=== PATIENT | male | born 1940 | race Caucasian/White ===

== ENCOUNTER → 2017-12-29 | Outpatient (CLI) | payer MEDICARE ==
--- NOTE | 2017-12-29 15:23 | Diagnostic Imaging Report ---
PROCEDURE: MRI lumbar spine. TECHNIQUE: Multiplanar, multisequence MRI of the lumbar spine was performed without contrast. INDICATION: Back and pelvic pain. There are no prior studies available for comparison. FINDINGS: There is a 2.0 x 3.2 cm mass involving the posterior half of the vertebral body of L4 on the right. This mass should be considered neoplastic until proven otherwise. The mass does compress the ventral aspect of the thecal sac at this level and there is moderate trefoil stenosis at the L3-L4 level. There is also narrowing of the neural foramen bilaterally. In addition, there is a similar-appearing mass involving much of the right sacrum and ilium. This mass is not visualized in its entirety. MRI of the pelvis is pending for further study. There does appear to be compression of the thecal sac and nerve roots at the L5-S1 level due to the mass. There is also narrowing of the neural foramen bilaterally at L5-S1. There is no evidence for involvement of the L4-L5 level by neoplasm, but there is trefoil stenosis at this level. There is also narrowing of the neural foramen bilaterally. The L1-L2 and L2-L3 levels are unremarkable for spinal stenosis or nerve root encroachment. There is no sign of a cord lesion. There is no acute bony abnormality identified either. There is no evidence for a paraspinal mass. IMPRESSION: 1. There is a large mass involving much of the right sacrum and ilium. There is also a much smaller mass involving the posterior half of the vertebral body of L4 on the right. These masses should be considered neoplastic until proven otherwise. This mass could be secondary to a large metastatic focus. A primary bone neoplasm or plasmacytoma should also be considered. MRI of the pelvis is pending for further study. 2. There is spinal stenosis at L3-L4, L4-L5, and L5-S1. There is also neuroforaminal narrowing at each of these levels. 3. The remainder of the lumbar spine is unremarkable for spinal stenosis or nerve root encroachment. 4. There is no sign of an acute bony abnormality or of a cord lesion. Dictated by: Dictated on workstation # [id number]
--- NOTE | 2017-12-29 15:30 | Diagnostic Imaging Report ---
PROCEDURE: MRI pelvis without contrast. TECHNIQUE: Multiplanar, multisequence MRI of the pelvis was performed without contrast. INDICATION: Hip pain. FINDINGS: As noted on the MRI lumbar spine exam performed in conjunction with this study, there is a large mass involving the right sacrum and much of the right ilium. The mass also is extended into the right acetabulum and to both pubic rami as well. The mass measures 5.2 x 7.2 x 19.5 cm in maximum transverse, AP, and longitudinal dimensions. This mass should be considered neoplastic until proven otherwise. There is no other evidence for a neoplastic process. The prostate gland has somewhat of a heterogeneous appearance but does not seem to be enlarged. The urinary bladder is grossly unremarkable. There is no solid pelvic mass or free fluid collection evident. There does appear to be a well-defined cyst in the subcutaneous fat of the left buttock near midline. This measures 3.1 x 4.9 cm. IMPRESSION: 1. There is a large mass involving the sacrum and right ilium and pubic rami on the right. This mass should be considered neoplastic until proven otherwise. Differential considerations would include metastatic disease, a primary bone neoplasm and plasmocytoma. I would recommend that CT of the chest, abdomen, and pelvis be performed to evaluate for possible primary neoplasm that could account for the mass involving the right pelvis and sacrum. The CT exam could also give a better perspective of possible site for a biopsy. 2. There is no acute bony abnormality noted. 3. These results were discussed with Dr. Dugan. Dictated by: Dictated on workstation # [id number]
== END ==
LOC: RAD 12:14
PROVIDERS: ATTEND Nurse Practitioner Family
DX: M89.9 Disorder of bone, unspecified (principal); M48.07 Spinal stenosis, lumbosacral region; M99.73 Connective tissue and disc stenosis of intervertebral foramina of lumbar region
CPT/HCPCS: 72148; 72195

== ENCOUNTER → 2017-12-30 | Outpatient (CLI) | payer MEDICARE ==
--- NOTE | 2017-12-30 09:41 | Diagnostic Imaging Report ---
PROCEDURE: CT chest, abdomen, and pelvis without contrast. TECHNIQUE: Multiple contiguous axial images were obtained through the chest, abdomen, and pelvis without the use of intravenous contrast. INDICATION: Abnormal MRI of lumbar spine and pelvis indicating bony lesions. CT CHEST: Noncontrasted axial CT images of the thorax are obtained. There is no evidence of pulmonary mass or focal infiltrate. Unenhanced images reveal atherosclerotic calcification and coronary arteries without evidence of pathologic adenopathy in the chest. There is extensive expansile lesion demonstrating primarily lytic appearance involving the right eighth rib with coarse internal calcifications. There is also focal lucency within the posterolateral aspect of T9 vertebral body toward the left which extends into the left pedicle. There is no significant pleural or pericardial fluid. IMPRESSION: Primarily lytic lesions involving the right eighth rib and T9 vertebra. While differential considerations for expansile lytic lesion include multiple myeloma or possible chondroid tumor, multiple osseous lesions in the patient of this age group are likely due to metastatic disease and clinical correlation is recommended. Biopsy of the right eighth rib could be performed for histologic analysis. There is no evidence of pulmonary metastatic disease or pathologic adenopathy. CT ABDOMEN AND PELVIS: Unenhanced images of the liver and spleen reveal no focal lesion. There is no evidence of pancreatic, gallbladder or adrenal gland lesion. Left kidney is also unremarkable in the unenhanced images. There is abnormal enlargement of the right kidney with a slightly hyperdense focus in the lateral aspect of the midportion of the right kidney measuring approximately 4.2 cm in diameter. In addition, there is hyperdensity extending into the right renal vein, which may represent bland or tumor thrombus. There is no free fluid in the abdomen or pelvis. Appendix has a normal appearance. There is no evidence of pathologically enlarged adenopathy. There are prominent lytic lesions involving L4 vertebral body as well as the sacrum and the adjacent right ilium with extension into the right ischium with apparent pathologic fracture at the level of the posterior column of the right acetabulum. There is a circumscribed, possible cystic nodule in the subcutaneous tissues of the medial inferior left buttock. IMPRESSION: Additional expansile lytic bone lesions are seen in the right hemipelvis with probable pathologic fracture of the right ischium likely representing metastatic disease. This may arise from primary right renal malignancy. Distention of the right renal vein would be compatible with tumor embolus. These findings are incompletely evaluated on the noncontrasted CT study although clinical correlation and possible biopsy would be of use for confirmation. Dictated by: Dictated on workstation # [id number]
== END ==
LOC: RAD 08:49
PROVIDERS: ATTEND Family Medicine
DX: R93.7 Abnormal findings on diagnostic imaging of other parts of musculoskeletal system (principal); M89.9 Disorder of bone, unspecified; W01.0XXA Fall on same level from slipping, tripping and stumbling without subsequent striking against object, initial encounter; K08.89 Other specified disorders of teeth and supporting structures; I70.90 Unspecified atherosclerosis
CPT/HCPCS: 71250; 74176

== ENCOUNTER 2018-01-06 07:03 | Day surgery (SDC) | payer MEDICARE ==
[2018-01-06] VITALS (15 sets, daily range): BP systolic 105–137; BP diastolic 52–76
[~2018-01-06] VITALS: Ht 177.8 cm; Wt 99.8 kg
[2018-01-06 07:48] LABS: MEAN PLATELET VOLUME 9.8 FL (7.4-10.4); RED BLOOD COUNT 4.5 10^6/uL (4.35-5.85); RED CELL DISTRIBUTION WIDTH 14.9 % (10.0-14.5); WHITE BLOOD COUNT 10.4 10^3/uL (4.3-11.0)
[2018-01-06 08:12] LABS: INR 1.1 (0.8-1.4); PROTHROMBIN TIME PATIENT 14.2 SEC (12.2-14.7)
[2018-01-06] MEDS ORDERED: LIDOCAINE 1% INJ 20 ML 20 ML VIAL INJ ONE (08:15)
[2018-01-06] MEDS ORDERED: NS IV 1000 ML 1,000 ML IV STA (08:17)
[2018-01-06] MEDS ORDERED: fentaNYL INJECTION 100 MCG/2 ML AMP IVP ONE (08:30)
[2018-01-06] MEDS ORDERED: MIDAZOLAM 2 MG/2 ML (VERSED) VIAL IVP ONE (08:30)
[2018-01-06] MEDS ORDERED: HYDROcodone/APAP 5 MG/325 MG (LORTAB) TAB PO PRN (09:45)
--- NOTE | 2018-01-06 12:14 | Diagnostic Imaging Report ---
Indication: Right rib expansile lytic lesion. Patient presents for CT-guided biopsy. After informed written consent was obtained from the patient, the patient was brought to the CT suite and placed on the table in the left side down decubitus position. Axial imaging through the chest was performed to evaluate appropriate entry site. The skin of the right posterior thorax was then prepped and draped in usual sterile fashion. Conscious sedation was utilized with radiology nursing and constant monitoring. Patient was administered a total of 0.5 mg of Versed and 25 mcg of fentanyl intravenously. Total procedure time was 24 minutes. A small amount of 1% lidocaine was utilized for local anesthesia. An 18-gauge coaxial Temno guide needle was advanced into the expansile mass involving the right eighth posterior lateral rib. Multiple core biopsies were obtained. The needle was then repositioned into a different portion of the expansile lesion and additional core biopsies were obtained. Needle was withdrawn, hemostasis was obtained using manual compression. The patient tolerated procedure well and left the department in stable condition. Impression: CT-guided core biopsy of the expansile mass involving the right eighth rib, utilizing conscious sedation. Pathology results are currently pending. Dictated by: Dictated on workstation # [id number]
--- NOTE | 2018-01-06 13:28 | Pre-Op Note & Conscious Sedat ---
Pre-Operative Progress Note H&P Reviewed The H&P was reviewed, patient examined and no changes noted. Date H&P Reviewed: Jan 06, 2018 Time H&P Reviewed: 08:00 Pre-Op Diagnosis: Right rib mass Conscious Sedation Pre-Proced Time 08:00 ASA Score 2 For ASA 3 and 4: Consider anesthesia and medical clearance. Also, for patients with a history of failed moderate sedation consider anesthesia. Airway Lungs Heart ASA score ASA 1: a normal healthy patient ASA 2: a patient with a mild systemic disease (mid diabetes, controlled hypertension, obesity ASA 3: a patient with a severe systemic disease that limits activity (angina , COPD, prior Myocardial infarction) ASA 4: a patient with an incapacitating disease that is a constant threat to life (CHF, renal failure) ASA 5: a moribund patient not expected to survive 24 hrs. (ruptured aneurysm) ASA 6: a declared brain patient whose organs are being harvested. For emergent operations, add the letter E after the classification Mallampati Classification Grade 1 Sedation Plan Analgesia, Amnesia, Plan communicated to team members, Discussed options with patient/fam, Discussed risks with patient/fam The patient is an appropriate candidate to undergo the planned procedure, sedation, and anesthesia. The patient immediately re-assessed prior to indication. MANNY AGUILA MD Jan 06, 2018 13:28
== END 2018-01-06 13:30 | disposition home or self-care (01) ==
LOC: SDC 07:03
PROVIDERS: ATTEND Family Medicine
DX: C79.51 Secondary malignant neoplasm of bone (principal); C64.9 Malignant neoplasm of unspecified kidney, except renal pelvis; I10 Essential (primary) hypertension; G89.3 Neoplasm related pain (acute) (chronic); S32.601D Unspecified fracture of right ischium, subsequent encounter for fracture with routine healing; Z79.899 Other long term (current) drug therapy
CPT/HCPCS: 36415; 77012; 85027; 85610; 85730; 88307; 88341; 88342; 99156; 99157

== ENCOUNTER 2018-02-15 14:04 | Outpatient (RCR) | payer MEDICARE ==
[2018-01-14 10:33] LABS: BASOPHILS % (AUTO) 0 % (0-10); EOSINOPHILS # (AUTO) 0.1 10^3/uL (0.0-0.3); EOSINOPHILS % (AUTO) 1 % (0-10); HEMATOCRIT 40 % (40-54); HEMOGLOBIN 13.2 G/DL (13.3-17.7); LYMPHOCYTES # (AUTO) 1.5 X 10^3 (1.0-4.0); LYMPHOCYTES % (AUTO) 19 % (12-44); MEAN CORPUSCULAR HEMOGLOBIN 28 PG (25-34); MEAN CORPUSCULAR HGB CONC 33 G/DL (32-36); MEAN CORPUSCULAR VOLUME 84 FL (80-99); MEAN PLATELET VOLUME 9.2 FL (7.4-10.4); MONOCYTES # (AUTO) 0.7 X 10^3 (0.0-1.0); MONOCYTES % (AUTO) 9 % (0-12); NEUTROPHILS # (AUTO) 5.8 X 10^3 (1.8-7.8); NEUTROPHILS % (AUTO) 71 % (42-75); PLATELET COUNT 312 10^3/uL (130-400); RED BLOOD COUNT 4.75 10^6/uL (4.35-5.85); RED CELL DISTRIBUTION WIDTH 14.4 % (10.0-14.5); WHITE BLOOD COUNT 8.1 10^3/uL (4.3-11.0)
[2018-01-14 10:53] LABS: ALANINE AMINOTRANSFERASE 24 U/L (0-55); ALBUMIN 4.6 GM/DL (3.2-4.5); ALKALINE PHOSPHATASE 157 U/L (40-136); BILIRUBIN,TOTAL 0.5 MG/DL (0.1-1.0); BUN/CREATININE RATIO 22; CALCIUM 11.1 MG/DL (8.5-10.1); CARBON DIOXIDE 23 MMOL/L (21-32); CHLORIDE 100 MMOL/L (98-107); GFR ESTIMATED > 60; GLUCOSE 117 MG/DL (70-105); POTASSIUM 4.1 MMOL/L (3.6-5.0); SODIUM 136 MMOL/L (135-145); TOTAL PROTEIN 8.8 GM/DL (6.4-8.2)
[~2018-02-15 14:04] MED LIST: morphine INJ 4 MG/ML 1 ML (CANCER CTR) ONE
[2018-02-15] MEDS ORDERED: morphine INJ 4 MG/ML 1 ML (CANCER CTR) IV PRN (16:00)
== END 2018-04-14 | disposition home or self-care (01) ==
LOC: ONC 14:04
PROVIDERS: ATTEND Internal Medicine Hematology & Oncology
DX: Z51.0 Encounter for antineoplastic radiation therapy (principal); C64.1 Malignant neoplasm of right kidney, except renal pelvis; C79.51 Secondary malignant neoplasm of bone; E83.52 Hypercalcemia; G89.3 Neoplasm related pain (acute) (chronic); E66.9 Obesity, unspecified; Z68.30 Body mass index [BMI] 30.0-30.9, adult; Z79.82 Long term (current) use of aspirin; Z79.891 Long term (current) use of opiate analgesic; Z79.899 Other long term (current) drug therapy
CPT/HCPCS: 36415; 77290; 77295; 77300; 77334; 77336; 77417; 77470; 80053; 83615; 85025; 96374; 96376; 99205; 99213

== ENCOUNTER 2018-10-11 09:18 | Outpatient (RCR) | payer MEDICARE ==
[2018-07-19 10:22] LABS: BASOPHILS % (AUTO) 0 % (0-10); EOSINOPHILS # (AUTO) 0.3 10^3/uL (0.0-0.3); EOSINOPHILS % (AUTO) 3 % (0-10); HEMATOCRIT 41 % (40-54); HEMOGLOBIN 12.8 G/DL (13.3-17.7); LYMPHOCYTES % (AUTO) 33 % (12-44); MEAN CORPUSCULAR HEMOGLOBIN 28 PG (25-34); MEAN CORPUSCULAR HGB CONC 31 G/DL (32-36); MEAN CORPUSCULAR VOLUME 88 FL (80-99); MEAN PLATELET VOLUME 9.4 FL (7.4-10.4); MONOCYTES # (AUTO) 0.8 X 10^3 (0.0-1.0); MONOCYTES % (AUTO) 8 % (0-12); NEUTROPHILS # (AUTO) 5.2 X 10^3 (1.8-7.8); NEUTROPHILS % (AUTO) 56 % (42-75); PLATELET COUNT 291 10^3/uL (130-400); RED CELL DISTRIBUTION WIDTH 21.3 % (10.0-14.5); WHITE BLOOD COUNT 9.3 10^3/uL (4.3-11.0)
[2018-07-19 10:43] LABS: BUN/CREATININE RATIO 38; CARBON DIOXIDE 24 MMOL/L (21-32); CHLORIDE 104 MMOL/L (98-107); CREATININE SERUM 0.71 MG/DL (0.60-1.30); GFR ESTIMATED > 60; GLUCOSE 128 MG/DL (70-105); POTASSIUM 4.3 MMOL/L (3.6-5.0); SODIUM 138 MMOL/L (135-145)
[2018-07-19 10:44] LABS: ALANINE AMINOTRANSFERASE 31 U/L (0-55); ALBUMIN 4.3 GM/DL (3.2-4.5); ALKALINE PHOSPHATASE 140 U/L (40-136); BILIRUBIN,TOTAL 0.3 MG/DL (0.1-1.0); CALCIUM 9.9 MG/DL (8.5-10.1); TOTAL PROTEIN 7.4 GM/DL (6.4-8.2)
[2018-08-02 14:16] LABS: BASOPHILS % (AUTO) 0 % (0-10); EOSINOPHILS # (AUTO) 0.3 10^3/uL (0.0-0.3); EOSINOPHILS % (AUTO) 3 % (0-10); HEMATOCRIT 40 % (40-54); HEMOGLOBIN 12.4 G/DL (13.3-17.7); LYMPHOCYTES % (AUTO) 22 % (12-44); MEAN CORPUSCULAR HEMOGLOBIN 27 PG (25-34); MEAN CORPUSCULAR HGB CONC 31 G/DL (32-36); MEAN CORPUSCULAR VOLUME 88 FL (80-99); MEAN PLATELET VOLUME 9.2 FL (7.4-10.4); MONOCYTES # (AUTO) 0.9 X 10^3 (0.0-1.0); MONOCYTES % (AUTO) 9 % (0-12); NEUTROPHILS # (AUTO) 6.2 X 10^3 (1.8-7.8); NEUTROPHILS % (AUTO) 66 % (42-75); PLATELET COUNT 303 10^3/uL (130-400); RED CELL DISTRIBUTION WIDTH 21.4 % (10.0-14.5); WHITE BLOOD COUNT 9.4 10^3/uL (4.3-11.0)
[2018-08-02 14:37] LABS: ALANINE AMINOTRANSFERASE 21 U/L (0-55); ALBUMIN 4.3 GM/DL (3.2-4.5); ALKALINE PHOSPHATASE 139 U/L (40-136); BILIRUBIN,TOTAL 0.4 MG/DL (0.1-1.0); BUN/CREATININE RATIO 24; CALCIUM 9.7 MG/DL (8.5-10.1); CARBON DIOXIDE 23 MMOL/L (21-32); CHLORIDE 105 MMOL/L (98-107); CREATININE SERUM 0.78 MG/DL (0.60-1.30); GFR ESTIMATED > 60; GLUCOSE 97 MG/DL (70-105); POTASSIUM 4.1 MMOL/L (3.6-5.0); SODIUM 139 MMOL/L (135-145); TOTAL PROTEIN 7.6 GM/DL (6.4-8.2)
[2018-08-16 14:11] LABS: BASOPHILS % (AUTO) 0 % (0-10); EOSINOPHILS # (AUTO) 0.4 10^3/uL (0.0-0.3); EOSINOPHILS % (AUTO) 4 % (0-10); HEMATOCRIT 40 % (40-54); HEMOGLOBIN 12.8 G/DL (13.3-17.7); LYMPHOCYTES # (AUTO) 1.6 X 10^3 (1.0-4.0); LYMPHOCYTES % (AUTO) 18 % (12-44); MEAN CORPUSCULAR HEMOGLOBIN 29 PG (25-34); MEAN CORPUSCULAR HGB CONC 32 G/DL (32-36); MEAN CORPUSCULAR VOLUME 88 FL (80-99); MEAN PLATELET VOLUME 9.3 FL (7.4-10.4); MONOCYTES # (AUTO) 0.6 X 10^3 (0.0-1.0); MONOCYTES % (AUTO) 7 % (0-12); NEUTROPHILS # (AUTO) 6.3 X 10^3 (1.8-7.8); NEUTROPHILS % (AUTO) 71 % (42-75); PLATELET COUNT 256 10^3/uL (130-400); RED CELL DISTRIBUTION WIDTH 19.7 % (10.0-14.5); WHITE BLOOD COUNT 8.9 10^3/uL (4.3-11.0)
[2018-08-16 14:33] LABS: ALANINE AMINOTRANSFERASE 28 U/L (0-55); ALBUMIN 4.2 GM/DL (3.2-4.5); ALKALINE PHOSPHATASE 149 U/L (40-136); BILIRUBIN,TOTAL 0.3 MG/DL (0.1-1.0); BUN/CREATININE RATIO 22; CALCIUM 9.2 MG/DL (8.5-10.1); CARBON DIOXIDE 25 MMOL/L (21-32); CHLORIDE 108 MMOL/L (98-107); CREATININE SERUM 0.78 MG/DL (0.60-1.30); GFR ESTIMATED > 60; GLUCOSE 131 MG/DL (70-105); POTASSIUM 4.1 MMOL/L (3.6-5.0); SODIUM 141 MMOL/L (135-145); TOTAL PROTEIN 7.4 GM/DL (6.4-8.2)
[2018-09-13 09:28] LABS: BASOPHILS % (AUTO) 0 % (0-10); EOSINOPHILS # (AUTO) 0.3 10^3/uL (0.0-0.3); EOSINOPHILS % (AUTO) 3 % (0-10); HEMATOCRIT 43 % (40-54); HEMOGLOBIN 14.1 G/DL (13.3-17.7); LYMPHOCYTES # (AUTO) 2.8 X 10^3 (1.0-4.0); LYMPHOCYTES % (AUTO) 30 % (12-44); MEAN CORPUSCULAR HEMOGLOBIN 30 PG (25-34); MEAN CORPUSCULAR HGB CONC 33 G/DL (32-36); MEAN CORPUSCULAR VOLUME 90 FL (80-99); MEAN PLATELET VOLUME 9.5 FL (7.4-10.4); MONOCYTES # (AUTO) 0.8 X 10^3 (0.0-1.0); MONOCYTES % (AUTO) 9 % (0-12); NEUTROPHILS # (AUTO) 5.4 X 10^3 (1.8-7.8); NEUTROPHILS % (AUTO) 58 % (42-75); PLATELET COUNT 226 10^3/uL (130-400); WHITE BLOOD COUNT 9.3 10^3/uL (4.3-11.0)
[2018-09-13 09:49] LABS: ALANINE AMINOTRANSFERASE 26 U/L (0-55); ALBUMIN 4.4 GM/DL (3.2-4.5); ALKALINE PHOSPHATASE 153 U/L (40-136); BILIRUBIN,TOTAL 0.4 MG/DL (0.1-1.0); BUN/CREATININE RATIO 20; CALCIUM 9.7 MG/DL (8.5-10.1); CARBON DIOXIDE 24 MMOL/L (21-32); CHLORIDE 106 MMOL/L (98-107); CREATININE SERUM 0.75 MG/DL (0.60-1.30); GFR ESTIMATED > 60; GLUCOSE 105 MG/DL (70-105); POTASSIUM 4.6 MMOL/L (3.6-5.0); SODIUM 141 MMOL/L (135-145); TOTAL PROTEIN 7.6 GM/DL (6.4-8.2)
[~2018-10-11] VITALS: Ht 177.8 cm; Wt 99.3 kg
[~2018-10-11 09:18] MED LIST changes: +NIVOLUMAB 240 MG in NS (IVPB) CANCER CENTER 100 ML IV SCH; +NS (IVPB) CANCER CENTER 250 ML IV SCH; +diphenhydrAMINE 25 MG TAB (BENADRYL) CANCER CENTER PO ONE; +diphenhydrAMINE 25 MG TAB (BENADRYL) CANCER CENTER PO SCH; +methylPREDNISolone 125 MG/2 ML (SOLU-MEDROL) CANCER CTR IV SCH; -morphine INJ 4 MG/ML 1 ML (CANCER CTR) ONE
[2018-10-11 09:48] LABS: BASOPHILS % (AUTO) 0 % (0-10); EOSINOPHILS # (AUTO) 0.3 10^3/uL (0.0-0.3); EOSINOPHILS % (AUTO) 4 % (0-10); HEMATOCRIT 43 % (40-54); HEMOGLOBIN 14.1 G/DL (13.3-17.7); LYMPHOCYTES # (AUTO) 1.6 X 10^3 (1.0-4.0); LYMPHOCYTES % (AUTO) 20 % (12-44); MEAN CORPUSCULAR HEMOGLOBIN 30 PG (25-34); MEAN CORPUSCULAR HGB CONC 33 G/DL (32-36); MEAN CORPUSCULAR VOLUME 92 FL (80-99); MEAN PLATELET VOLUME 9.5 FL (7.4-10.4); MONOCYTES # (AUTO) 0.7 X 10^3 (0.0-1.0); MONOCYTES % (AUTO) 8 % (0-12); NEUTROPHILS # (AUTO) 5.4 X 10^3 (1.8-7.8); NEUTROPHILS % (AUTO) 67 % (42-75); PLATELET COUNT 225 10^3/uL (130-400); RED CELL DISTRIBUTION WIDTH 14.9 % (10.0-14.5); WHITE BLOOD COUNT 8.1 10^3/uL (4.3-11.0)
[2018-10-11 10:13] LABS: ALANINE AMINOTRANSFERASE 39 U/L (0-55); ALBUMIN 4.3 GM/DL (3.2-4.5); ALKALINE PHOSPHATASE 143 U/L (40-136); BILIRUBIN,TOTAL 0.4 MG/DL (0.1-1.0); BUN/CREATININE RATIO 23; CALCIUM 9.9 MG/DL (8.5-10.1); CARBON DIOXIDE 22 MMOL/L (21-32); CHLORIDE 106 MMOL/L (98-107); GFR ESTIMATED > 60; GLUCOSE 108 MG/DL (70-105); POTASSIUM 4.4 MMOL/L (3.6-5.0); SODIUM 140 MMOL/L (135-145); TOTAL PROTEIN 7.3 GM/DL (6.4-8.2)
[2018-10-11] MEDS ORDERED: methylPREDNISolone 125 MG/2 ML (SOLU-MEDROL) CANCER CTR IV SCH (10:30)
[2018-10-11 10:36] LABS: FREE T4 (FREE THYROXINE) 0.56 NG/DL (0.70-1.48)
== END 2018-10-17 | disposition home or self-care (01) ==
LOC: ONC 09:18
PROVIDERS: ATTEND Internal Medicine Hematology & Oncology
DX: Z51.11 Encounter for antineoplastic chemotherapy (principal); C64.1 Malignant neoplasm of right kidney, except renal pelvis; C79.51 Secondary malignant neoplasm of bone; E83.52 Hypercalcemia; G89.3 Neoplasm related pain (acute) (chronic); E66.9 Obesity, unspecified; Z68.30 Body mass index [BMI] 30.0-30.9, adult; Z79.899 Other long term (current) drug therapy; Z79.82 Long term (current) use of aspirin; Z79.891 Long term (current) use of opiate analgesic
CPT/HCPCS: 36415; 80053; 83615; 84439; 84443; 85025; 96375; 96413

== ENCOUNTER → 2018-11-03 | Outpatient (CLI) | payer MEDICARE ==
[~2018-11-03] MED LIST changes: +BARIUM SUSPENSION 2.1% (VANILLA SILQ) 450 ML PO ONE; +CATHETER FLUSH 10 ML SYR IV PRN; +HOLD METFORMIN - RECEIVED CONTRAST 20 ML VIAL IV SCH; +IOHEXOL 350 MG/ML 100 ML (OMNIPAQUE 350) VIAL IV ONE; -NIVOLUMAB 240 MG in NS (IVPB) CANCER CENTER 100 ML IV SCH; -NS (IVPB) CANCER CENTER 250 ML IV SCH; +NS 100 ML (IVPB) BAG IV ONE; -diphenhydrAMINE 25 MG TAB (BENADRYL) CANCER CENTER PO ONE; -diphenhydrAMINE 25 MG TAB (BENADRYL) CANCER CENTER PO SCH; -methylPREDNISolone 125 MG/2 ML (SOLU-MEDROL) CANCER CTR IV SCH
--- NOTE | 2018-11-03 14:05 | Diagnostic Imaging Report ---
PROCEDURE: CT chest with contrast, CT abdomen and pelvis with and without contrast. TECHNIQUE: Pre and post intravenous contrast axial imaging of the abdomen and pelvis and post contrast axial imaging of the chest were performed. Auto Exposure Controls were utilized during the CT exam to meet ALARA standards for radiation dose reduction. INDICATION: Clear-cell carcinoma. COMPARISON: Correlation is made with prior CT from 12/30/2017. CT CHEST: No axillary lymphadenopathy is identified. No mediastinal or hilar lymphadenopathy is detected. No pericardial or pleural fluid is seen. No pulmonary infiltrate, nodule, or mass is detected. Previously noted expansile lytic lesion involving the right posterior eighth rib is again noted. The extraosseous soft tissue component of the lesion does appear to be less on today's study. Lucency of the posterior and left aspect of the T9 vertebral body is similar to prior exam. IMPRESSION: 1. No evidence of thoracic lymphadenopathy or pulmonary metastatic disease. Right eighth rib expansile lytic lesion is again noted. The soft tissue component of the lesion does appear to be improved when compared with prior CT. CT ABDOMEN AND PELVIS: No discrete liver mass is seen. The gallbladder is unremarkable. No biliary ductal dilatation is seen. The pancreas and spleen are unremarkable. No adrenal mass is detected. There appears to be a solid renal mass involving the mid right kidney measuring approximately 3.9 x 5.1 cm. This was difficult to measure on prior CT as that study was performed without contrast. Overall size appears to be similar. Left kidney is unremarkable. Aorta is calcified but nonaneurysmal. No central retroperitoneal or mesenteric lymphadenopathy is seen. Bowel loops are normal in caliber. There is no ascites. Evaluation of the osseous structures again demonstrates a lytic lesion in the L4 vertebral body. Marked osseous destructive changes of the right sacral ala and right iliac bone are again noted. As seen within the right rib, the overall soft tissue component to the bony lesions does appear to be improved. Soft tissue component in the right obturator region has significantly improved. No new bony lesion is seen. IMPRESSION: 1. The expansile osseous lesions in the right hemipelvis are again noted, but the overall soft tissue component to the lesions does appear to be significantly improved. No new osseous lesions are seen. Solid right renal mass appears to be similar to the examination from 12/30/2017. No abdominal or pelvic lymphadenopathy is detected. Dictated by: Dictated on workstation # [id number]
--- NOTE | 2018-11-03 14:47 | Diagnostic Imaging Report ---
INDICATION: Clear cell carcinoma. TECHNIQUE: Patient was administered 26.1 mCi technetium-99m MDP intravenously and whole body imaging was performed after 3-hour delay. COMPARISON: No prior bone scans are available for comparison. Comparison is made with CT study performed earlier the same day. FINDINGS: There is uptake of activity by the axial and appendicular skeleton. There is uptake by the kidneys with excretion into the urinary bladder. Areas of uptake involving the right posterior ribs corresponding to the expansile lytic lesion noted on CT is seen. There is also significant uptake in the region of the pelvis involving the sacrum and right iliac bone corresponding to the expansile destructive lesions. Mild uptake involving the lower left anterior ribs are seen. In correlation with the recent CT, this appears to represent an area of healing rib fracture. No expansile lesion is detected. No other abnormality is detected. IMPRESSION: Metastatic lesions involving right-sided posterior ribs as well as within the sacrum and left iliac bone, corresponding to the CT abnormalities. No additional sites of metastatic disease are identified. There are healing rib fractures involving the left lower anterior ribs. Dictated by: Dictated on workstation # [id number]
== END ==
LOC: CARD 10:36
PROVIDERS: ATTEND Internal Medicine Hematology & Oncology
DX: C64.1 Malignant neoplasm of right kidney, except renal pelvis (principal); C79.51 Secondary malignant neoplasm of bone; S22.42XD Multiple fractures of ribs, left side, subsequent encounter for fracture with routine healing
CPT/HCPCS: 71260; 74178; 78306

== ENCOUNTER 2019-01-17 08:38 | Outpatient (RCR) | payer MEDICARE ==
[2018-11-08 10:43] LABS: BASOPHILS % (AUTO) 0 % (0-10); EOSINOPHILS # (AUTO) 0.3 10^3/uL (0.0-0.3); EOSINOPHILS % (AUTO) 3 % (0-10); HEMATOCRIT 44 % (40-54); HEMOGLOBIN 14.6 G/DL (13.3-17.7); LYMPHOCYTES # (AUTO) 1.6 X 10^3 (1.0-4.0); LYMPHOCYTES % (AUTO) 16 % (12-44); MEAN CORPUSCULAR HEMOGLOBIN 31 PG (25-34); MEAN CORPUSCULAR HGB CONC 33 G/DL (32-36); MEAN CORPUSCULAR VOLUME 93 FL (80-99); MEAN PLATELET VOLUME 9.1 FL (7.4-10.4); MONOCYTES # (AUTO) 0.5 X 10^3 (0.0-1.0); MONOCYTES % (AUTO) 5 % (0-12); NEUTROPHILS # (AUTO) 7.2 X 10^3 (1.8-7.8); NEUTROPHILS % (AUTO) 75 % (42-75); PLATELET COUNT 243 10^3/uL (130-400); RED CELL DISTRIBUTION WIDTH 15.3 % (10.0-14.5); WHITE BLOOD COUNT 9.6 10^3/uL (4.3-11.0)
[2018-11-08 11:01] LABS: ALANINE AMINOTRANSFERASE 37 U/L (0-55); ALBUMIN 4.5 GM/DL (3.2-4.5); ALKALINE PHOSPHATASE 136 U/L (40-136); BILIRUBIN,TOTAL 0.3 MG/DL (0.1-1.0); BUN/CREATININE RATIO 20; CALCIUM 9.9 MG/DL (8.5-10.1); CARBON DIOXIDE 21 MMOL/L (21-32); CHLORIDE 106 MMOL/L (98-107); CREATININE SERUM 0.98 MG/DL (0.60-1.30); GFR ESTIMATED > 60; GLUCOSE 104 MG/DL (70-105); POTASSIUM 4.7 MMOL/L (3.6-5.0); SODIUM 140 MMOL/L (135-145); TOTAL PROTEIN 7.6 GM/DL (6.4-8.2)
[2018-12-06 08:58] LABS: BASOPHILS % (AUTO) 0 % (0-10); EOSINOPHILS # (AUTO) 0.3 10^3/uL (0.0-0.3); EOSINOPHILS % (AUTO) 4 % (0-10); HEMATOCRIT 43 % (40-54); HEMOGLOBIN 13.8 G/DL (13.3-17.7); LYMPHOCYTES # (AUTO) 2.1 X 10^3 (1.0-4.0); LYMPHOCYTES % (AUTO) 24 % (12-44); MEAN CORPUSCULAR HEMOGLOBIN 31 PG (25-34); MEAN CORPUSCULAR HGB CONC 32 G/DL (32-36); MEAN CORPUSCULAR VOLUME 94 FL (80-99); MEAN PLATELET VOLUME 9.4 FL (7.4-10.4); MONOCYTES # (AUTO) 0.6 X 10^3 (0.0-1.0); MONOCYTES % (AUTO) 7 % (0-12); NEUTROPHILS # (AUTO) 5.8 X 10^3 (1.8-7.8); NEUTROPHILS % (AUTO) 65 % (42-75); PLATELET COUNT 218 10^3/uL (130-400); RED CELL DISTRIBUTION WIDTH 15.8 % (10.0-14.5); WHITE BLOOD COUNT 8.9 10^3/uL (4.3-11.0)
[2018-12-06 09:18] LABS: ALANINE AMINOTRANSFERASE 41 U/L (0-55); ALBUMIN 4.5 GM/DL (3.2-4.5); ALKALINE PHOSPHATASE 122 U/L (40-136); BILIRUBIN,TOTAL 0.4 MG/DL (0.1-1.0); BUN/CREATININE RATIO 22; CALCIUM 9.7 MG/DL (8.5-10.1); CARBON DIOXIDE 27 MMOL/L (21-32); CHLORIDE 105 MMOL/L (98-107); CREATININE SERUM 0.95 MG/DL (0.60-1.30); GFR ESTIMATED > 60; GLUCOSE 97 MG/DL (70-105); POTASSIUM 4.4 MMOL/L (3.6-5.0); SODIUM 142 MMOL/L (135-145); TOTAL PROTEIN 7.5 GM/DL (6.4-8.2)
[2019-01-03 09:23] LABS: BASOPHILS % (AUTO) 0 % (0-10); EOSINOPHILS # (AUTO) 0.4 10^3/uL (0.0-0.3); EOSINOPHILS % (AUTO) 4 % (0-10); HEMATOCRIT 40 % (40-54); LYMPHOCYTES # (AUTO) 2.2 X 10^3 (1.0-4.0); LYMPHOCYTES % (AUTO) 25 % (12-44); MEAN CORPUSCULAR HEMOGLOBIN 31 PG (25-34); MEAN CORPUSCULAR HGB CONC 33 G/DL (32-36); MEAN CORPUSCULAR VOLUME 95 FL (80-99); MONOCYTES # (AUTO) 0.5 X 10^3 (0.0-1.0); MONOCYTES % (AUTO) 6 % (0-12); NEUTROPHILS # (AUTO) 5.7 X 10^3 (1.8-7.8); NEUTROPHILS % (AUTO) 65 % (42-75); PLATELET COUNT 216 10^3/uL (130-400); RED CELL DISTRIBUTION WIDTH 15.5 % (10.0-14.5); WHITE BLOOD COUNT 8.7 10^3/uL (4.3-11.0)
[2019-01-03 09:46] LABS: ALANINE AMINOTRANSFERASE 26 U/L (0-55); ALBUMIN 4.5 GM/DL (3.2-4.5); ALKALINE PHOSPHATASE 132 U/L (40-136); BILIRUBIN,TOTAL 0.6 MG/DL (0.1-1.0); BUN/CREATININE RATIO 13; CALCIUM 9.4 MG/DL (8.5-10.1); CARBON DIOXIDE 28 MMOL/L (21-32); CHLORIDE 103 MMOL/L (98-107); CREATININE SERUM 1.02 MG/DL (0.60-1.30); GFR ESTIMATED > 60; GLUCOSE 108 MG/DL (70-105); POTASSIUM 4.2 MMOL/L (3.6-5.0); SODIUM 139 MMOL/L (135-145); TOTAL PROTEIN 7.3 GM/DL (6.4-8.2)
[~2019-01-17 08:38] MED LIST changes: -BARIUM SUSPENSION 2.1% (VANILLA SILQ) 450 ML PO ONE; -CATHETER FLUSH 10 ML SYR IV PRN; -HOLD METFORMIN - RECEIVED CONTRAST 20 ML VIAL IV SCH; -IOHEXOL 350 MG/ML 100 ML (OMNIPAQUE 350) VIAL IV ONE; +NIVOLUMAB 240 MG in NS (IVPB) CANCER CENTER 100 ML IV SCH; +NS (IVPB) CANCER CENTER 250 ML IV SCH; -NS 100 ML (IVPB) BAG IV ONE; +diphenhydrAMINE 25 MG TAB (BENADRYL) CANCER CENTER PO SCH; +methylPREDNISolone 125 MG/2 ML (SOLU-MEDROL) CANCER CTR IV SCH
== END 2019-01-22 | disposition home or self-care (01) ==
LOC: ONC 08:38
PROVIDERS: ATTEND Internal Medicine Hematology & Oncology
DX: Z51.11 Encounter for antineoplastic chemotherapy (principal); C64.1 Malignant neoplasm of right kidney, except renal pelvis; C79.51 Secondary malignant neoplasm of bone; E83.52 Hypercalcemia; G89.3 Neoplasm related pain (acute) (chronic); E66.9 Obesity, unspecified; Z68.30 Body mass index [BMI] 30.0-30.9, adult; Z79.899 Other long term (current) drug therapy; Z79.82 Long term (current) use of aspirin; Z79.891 Long term (current) use of opiate analgesic
CPT/HCPCS: 36415; 80053; 83615; 84443; 85025; 96375; 96413

== ENCOUNTER → 2019-02-23 | Outpatient (CLI) | payer MEDICARE ==
[~2019-02-23] MED LIST changes: +CATHETER FLUSH 10 ML SYR IV PRN; -NIVOLUMAB 240 MG in NS (IVPB) CANCER CENTER 100 ML IV SCH; -NS (IVPB) CANCER CENTER 250 ML IV SCH; -diphenhydrAMINE 25 MG TAB (BENADRYL) CANCER CENTER PO SCH; -methylPREDNISolone 125 MG/2 ML (SOLU-MEDROL) CANCER CTR IV SCH
--- NOTE | 2019-02-23 12:10 | Diagnostic Imaging Report ---
PROCEDURE: CT chest with contrast, CT abdomen and pelvis with and without contrast. TECHNIQUE: Pre and post intravenous contrast axial imaging of the abdomen and pelvis and post contrast axial imaging of the chest were performed. Auto Exposure Controls were utilized during the CT exam to meet ALARA standards for radiation dose reduction. INDICATION: Clear-cell carcinoma with bone metastases. COMPARISON: Correlation is made with prior CT from 11/03/2018. CT CHEST: No axillary lymphadenopathy is detected. No mediastinal or hilar lymphadenopathy is detected. There are coronary arterial calcifications. No pericardial or pleural fluid is seen. No pulmonary nodules or masses are seen. There are no infiltrates. The expansile lytic lesion involving the right eighth posterolateral rib is again noted. This also involves portion of the lateral right seventh rib. The soft tissue component of the right seventh rib appears increased. A soft tissue component of the right eighth rib also appears to be somewhat increased. No additional lesions are seen. IMPRESSION: 1. No thoracic lymphadenopathy or pulmonary metastatic disease is identified. 2. Lytic lesions of the right seventh and eighth ribs are again noted. Soft tissue components of these lesions do appear to be increased when compared with the exam from 11/03/2018. No new abnormality is identified. CT ABDOMEN AND PELVIS: Liver and gallbladder are unremarkable. No biliary ductal dilatation is seen. Pancreas and spleen are unremarkable. No adrenal mass is detected. A right renal mass appears to be stable. No left renal mass is seen. Aorta is heavily calcified but not aneurysmal. No central retroperitoneal or mesenteric lymphadenopathy is detected. The small and large bowel loops are normal caliber. No free fluid or fluid collection is identified. No definite pelvic lymphadenopathy is detected. Lytic lesions involving the right hemipelvis which involves the right iliac bone and sacrum persist. Transversely oriented lucency through the right iliac bone extending into the SI joint is seen and similar to prior exam, may represent pathologic fracture. Overall appearance is very similar to prior exam. No new abnormality is detected. IMPRESSION: 1. Stable solid right renal mass. 2. Stable expansile lytic lesion of the right hemipelvis when compared with exam from 11/19/2018. 3. No abdominal or pelvic lymphadenopathy is detected. Dictated by: Dictated on workstation # [id number]
--- NOTE | 2019-02-23 15:14 | Diagnostic Imaging Report ---
INDICATION: Clear-cell carcinoma with bone metastases. TECHNIQUE: Patient was administered 28.4 mCi technetium 99m MDP intravenously and whole body imaging was performed after three-hour delay. COMPARISON: Correlation is made with prior whole body bone scan from 11/03/2018. FINDINGS: Uptake of activity by the axial and appendicular skeleton is seen. There is uptake by the kidneys with excretion into the urinary bladder. Abnormal uptake involving right seventh and eighth ribs posteriorly is similar to prior study. Small foci of uptake involving the anterior lower left ribs is also unchanged from prior. There is uptake throughout the right hemipelvis and sacrum, similar to prior exam. No new foci of tracer accumulation are seen. IMPRESSION: Stable whole body bone scan when compared with exam from 11/03/2018. Dictated by: Dictated on workstation # [id number]
== END ==
LOC: CARD 11:14
PROVIDERS: ATTEND Nurse Practitioner Adult Health
DX: Z51.12 Encounter for antineoplastic immunotherapy (principal); C64.1 Malignant neoplasm of right kidney, except renal pelvis; C79.51 Secondary malignant neoplasm of bone
CPT/HCPCS: 71260; 74178; 78306

== ENCOUNTER 2019-04-25 09:07 | Outpatient (RCR) | payer MEDICARE ==
[2019-01-31 08:45] LABS: BASOPHILS % (AUTO) 0 % (0-10); EOSINOPHILS # (AUTO) 0.3 10^3/uL (0.0-0.3); EOSINOPHILS % (AUTO) 3 % (0-10); HEMATOCRIT 41 % (40-54); HEMOGLOBIN 13.3 G/DL (13.3-17.7); LYMPHOCYTES # (AUTO) 2.3 X 10^3 (1.0-4.0); LYMPHOCYTES % (AUTO) 22 % (12-44); MEAN CORPUSCULAR HEMOGLOBIN 31 PG (25-34); MEAN CORPUSCULAR HGB CONC 33 G/DL (32-36); MEAN CORPUSCULAR VOLUME 97 FL (80-99); MEAN PLATELET VOLUME 9.5 FL (7.4-10.4); MONOCYTES # (AUTO) 0.8 X 10^3 (0.0-1.0); MONOCYTES % (AUTO) 8 % (0-12); NEUTROPHILS # (AUTO) 6.8 X 10^3 (1.8-7.8); NEUTROPHILS % (AUTO) 67 % (42-75); PLATELET COUNT 236 10^3/uL (130-400); RED CELL DISTRIBUTION WIDTH 14.8 % (10.0-14.5); WHITE BLOOD COUNT 10.2 10^3/uL (4.3-11.0)
[2019-01-31 09:04] LABS: ALANINE AMINOTRANSFERASE 40 U/L (0-55); ALBUMIN 4.2 GM/DL (3.2-4.5); ALKALINE PHOSPHATASE 127 U/L (40-136); BILIRUBIN,TOTAL 0.4 MG/DL (0.1-1.0); BUN/CREATININE RATIO 20; CALCIUM 9.9 MG/DL (8.5-10.1); CARBON DIOXIDE 22 MMOL/L (21-32); CHLORIDE 104 MMOL/L (98-107); CREATININE SERUM 0.86 MG/DL (0.60-1.30); GFR ESTIMATED > 60; GLUCOSE 89 MG/DL (70-105); SODIUM 139 MMOL/L (135-145); TOTAL PROTEIN 7.4 GM/DL (6.4-8.2)
[2019-02-28 09:04] LABS: BASOPHILS % (AUTO) 0 % (0-10); EOSINOPHILS # (AUTO) 0.3 10^3/uL (0.0-0.3); EOSINOPHILS % (AUTO) 4 % (0-10); HEMATOCRIT 41 % (40-54); HEMOGLOBIN 13.5 G/DL (13.3-17.7); LYMPHOCYTES # (AUTO) 2.3 X 10^3 (1.0-4.0); LYMPHOCYTES % (AUTO) 28 % (12-44); MEAN CORPUSCULAR HEMOGLOBIN 31 PG (25-34); MEAN CORPUSCULAR HGB CONC 33 G/DL (32-36); MEAN CORPUSCULAR VOLUME 94 FL (80-99); MEAN PLATELET VOLUME 9.2 FL (7.4-10.4); MONOCYTES # (AUTO) 0.6 X 10^3 (0.0-1.0); MONOCYTES % (AUTO) 8 % (0-12); NEUTROPHILS # (AUTO) 4.7 X 10^3 (1.8-7.8); NEUTROPHILS % (AUTO) 59 % (42-75); PLATELET COUNT 253 10^3/uL (130-400); RED CELL DISTRIBUTION WIDTH 13.4 % (10.0-14.5)
[2019-02-28 09:34] LABS: ALANINE AMINOTRANSFERASE 18 U/L (0-55); ALBUMIN 4.3 GM/DL (3.2-4.5); ALKALINE PHOSPHATASE 114 U/L (40-136); BILIRUBIN,TOTAL 0.5 MG/DL (0.1-1.0); BUN/CREATININE RATIO 17; CALCIUM 9.6 MG/DL (8.5-10.1); CARBON DIOXIDE 20 MMOL/L (21-32); CHLORIDE 107 MMOL/L (98-107); CREATININE SERUM 0.87 MG/DL (0.60-1.30); GFR ESTIMATED > 60; GLUCOSE 95 MG/DL (70-105); SODIUM 140 MMOL/L (135-145); TOTAL PROTEIN 7.2 GM/DL (6.4-8.2)
[2019-03-27 09:24] LABS: BASOPHILS % (AUTO) 0 % (0-10); EOSINOPHILS # (AUTO) 0.3 10^3/uL (0.0-0.3); EOSINOPHILS % (AUTO) 3 % (0-10); HEMATOCRIT 39 % (40-54); HEMOGLOBIN 12.9 G/DL (13.3-17.7); LYMPHOCYTES # (AUTO) 2.2 X 10^3 (1.0-4.0); LYMPHOCYTES % (AUTO) 24 % (12-44); MEAN CORPUSCULAR HEMOGLOBIN 31 PG (25-34); MEAN CORPUSCULAR HGB CONC 33 G/DL (32-36); MEAN CORPUSCULAR VOLUME 93 FL (80-99); MEAN PLATELET VOLUME 9.3 FL (7.4-10.4); MONOCYTES # (AUTO) 0.8 X 10^3 (0.0-1.0); MONOCYTES % (AUTO) 9 % (0-12); NEUTROPHILS % (AUTO) 64 % (42-75); PLATELET COUNT 233 10^3/uL (130-400); WHITE BLOOD COUNT 9.4 10^3/uL (4.3-11.0)
[2019-03-27 09:47] LABS: ALANINE AMINOTRANSFERASE 20 U/L (0-55); ALBUMIN 4.3 GM/DL (3.2-4.5); ALKALINE PHOSPHATASE 134 U/L (40-136); BILIRUBIN,TOTAL 0.4 MG/DL (0.1-1.0); BUN/CREATININE RATIO 17; CALCIUM 9.8 MG/DL (8.5-10.1); CARBON DIOXIDE 23 MMOL/L (21-32); CHLORIDE 103 MMOL/L (98-107); CREATININE SERUM 0.89 MG/DL (0.60-1.30); GFR ESTIMATED > 60; GLUCOSE 119 MG/DL (70-105); POTASSIUM 3.8 MMOL/L (3.6-5.0); SODIUM 138 MMOL/L (135-145); TOTAL PROTEIN 7.3 GM/DL (6.4-8.2)
[~2019-04-25 09:07] MED LIST changes: -CATHETER FLUSH 10 ML SYR IV PRN; +METHYLPREDNISOLONE 40 MG/ML IV SCH; +NIVOLUMAB 240 MG in NS (IVPB) CANCER CENTER 100 ML IV SCH; +NS (IVPB) CANCER CENTER 250 ML IV SCH; +diphenhydrAMINE 25 MG TAB (BENADRYL) CANCER CENTER PO SCH; +methylPREDNISolone 125 MG/2 ML (SOLU-MEDROL) CANCER CTR IV SCH; +methylPREDNISolone 125 MG/2 ML (SOLU-MEDROL) CANCER CTR ONE
[2019-04-25 09:45] LABS: BASOPHILS % (AUTO) 0 % (0-10); EOSINOPHILS # (AUTO) 0.4 10^3/uL (0.0-0.3); EOSINOPHILS % (AUTO) 5 % (0-10); HEMATOCRIT 42 % (40-54); HEMOGLOBIN 13.2 G/DL (13.3-17.7); LYMPHOCYTES % (AUTO) 26 % (12-44); MEAN CORPUSCULAR HEMOGLOBIN 29 PG (25-34); MEAN CORPUSCULAR HGB CONC 32 G/DL (32-36); MEAN CORPUSCULAR VOLUME 92 FL (80-99); MEAN PLATELET VOLUME 9.1 FL (7.4-10.4); MONOCYTES # (AUTO) 0.8 X 10^3 (0.0-1.0); MONOCYTES % (AUTO) 10 % (0-12); NEUTROPHILS # (AUTO) 4.3 X 10^3 (1.8-7.8); NEUTROPHILS % (AUTO) 58 % (42-75); PLATELET COUNT 249 10^3/uL (130-400); RED CELL DISTRIBUTION WIDTH 13.5 % (10.0-14.5); WHITE BLOOD COUNT 7.4 10^3/uL (4.3-11.0)
[2019-04-25] MEDS ORDERED: methylPREDNISolone 125 MG/2 ML (SOLU-MEDROL) CANCER CTR ONE (09:52)
[2019-04-25 10:04] LABS: ALANINE AMINOTRANSFERASE 34 U/L (0-55); ALBUMIN 4.4 GM/DL (3.2-4.5); ALKALINE PHOSPHATASE 134 U/L (40-136); BILIRUBIN,TOTAL 0.3 MG/DL (0.1-1.0); BUN/CREATININE RATIO 17; CALCIUM 9.8 MG/DL (8.5-10.1); CARBON DIOXIDE 21 MMOL/L (21-32); CHLORIDE 104 MMOL/L (98-107); CREATININE SERUM 0.82 MG/DL (0.60-1.30); GFR ESTIMATED > 60; GLUCOSE 102 MG/DL (70-105); POTASSIUM 3.6 MMOL/L (3.6-5.0); SODIUM 139 MMOL/L (135-145); TOTAL PROTEIN 7.4 GM/DL (6.4-8.2)
== END 2019-05-01 | disposition home or self-care (01) ==
LOC: ONC 09:07
PROVIDERS: ATTEND Internal Medicine Hematology & Oncology
DX: Z51.11 Encounter for antineoplastic chemotherapy (principal); C64.1 Malignant neoplasm of right kidney, except renal pelvis; C79.51 Secondary malignant neoplasm of bone; E83.52 Hypercalcemia; G89.3 Neoplasm related pain (acute) (chronic); E66.9 Obesity, unspecified; I82.401 Acute embolism and thrombosis of unspecified deep veins of right lower extremity; E03.9 Hypothyroidism, unspecified; Z79.82 Long term (current) use of aspirin; Z79.891 Long term (current) use of opiate analgesic; Z68.30 Body mass index [BMI] 30.0-30.9, adult; Z79.899 Other long term (current) drug therapy
CPT/HCPCS: 36415; 80053; 83615; 84443; 85025; 96375; 96413

== ENCOUNTER → 2019-06-15 | Outpatient (CLI) | payer MEDICARE ==
[~2019-06-15] MED LIST changes: +BARIUM SUSPENSION 2.1% (VANILLA SILQ) 450 ML PO ONE; +CATHETER FLUSH 10 ML SYR IV PRN; +HOLD METFORMIN - RECEIVED CONTRAST 20 ML VIAL IV SCH; +IOHEXOL 350 MG/ML 100 ML (OMNIPAQUE 350) VIAL IV ONE; -METHYLPREDNISOLONE 40 MG/ML IV SCH; -NIVOLUMAB 240 MG in NS (IVPB) CANCER CENTER 100 ML IV SCH; -NS (IVPB) CANCER CENTER 250 ML IV SCH; +NS 100 ML (IVPB) BAG IV ONE; -diphenhydrAMINE 25 MG TAB (BENADRYL) CANCER CENTER PO SCH; -methylPREDNISolone 125 MG/2 ML (SOLU-MEDROL) CANCER CTR IV SCH; -methylPREDNISolone 125 MG/2 ML (SOLU-MEDROL) CANCER CTR ONE
--- NOTE | 2019-06-15 12:54 | Diagnostic Imaging Report ---
PROCEDURE: CT chest with contrast, CT abdomen and pelvis with and without contrast. TECHNIQUE: Pre and post intravenous contrast axial imaging of the abdomen and pelvis and post contrast axial imaging of the chest were performed. Auto Exposure Controls were utilized during the CT exam to meet ALARA standards for radiation dose reduction. INDICATION: Clear cell carcinoma with metastatic disease. Study is performed for follow-up. COMPARISON: Correlation is made with prior CT from 02/23/2019. CT CHEST: No axillary lymphadenopathy is detected. No mediastinal or hilar lymphadenopathy is detected. No pericardial or pleural fluid is identified. Tiny nodule in the left lower lobe is stable. The expansile lesion involving the lower right ribs are again noted. The soft tissue component of the lateral right seventh rib is approximately 3.8 cm compared with 3.6 cm. Expansile lesion of the right eighth rib continues to show some mild increase in size. No new osseous lesion is seen. IMPRESSION: No thoracic lymphadenopathy is seen. The expansile lytic lesion with extraosseous soft tissue component involving the right seventh and eighth ribs persists and there continues to be some mild increase in soft tissue component of the right eighth rib when compared with exam from 02/23/2019. CT ABDOMEN AND PELVIS: No discrete liver mass is identified. Gallbladder is unremarkable. There is no biliary ductal dilatation. The pancreas and spleen are unremarkable. No adrenal mass is identified. Solid mass involving the right kidney appears to be stable. Left kidney is unremarkable. Aorta is non-aneurysmal. There is no central, retroperitoneal, or mesenteric lymphadenopathy. The small and large bowel loops are normal caliber. There is diverticulosis of the sigmoid but no acute diverticulitis. Prostate is enlarged. Bladder is unremarkable. Lytic lesions involving the right hemipelvis and sacrum appear similar. IMPRESSION: Overall stable CT of the abdomen and pelvis when compared with the examination from 02/23/2019. Dictated by: Dictated on workstation # [id number]
--- NOTE | 2019-06-15 15:35 | Diagnostic Imaging Report ---
INDICATION: Metastatic carcinoma. TECHNIQUE: Patient was administered 26.3 mCi technetium 99m MDP intravenously and a whole body imaging was performed after three-hour delay. COMPARISON: Correlation is made with prior whole body bone scan from 02/23/2019. FINDINGS: Previously noted uptake involving right seventh and eighth ribs is similar to prior exam and corresponds to abnormalities noted on CT. Small focus in the lower left anterior ribs is unchanged. There is uptake in the sacrum and right hemipelvis, similar to prior exam. No new foci of tracer accumulation are identified. IMPRESSION: Overall stable whole body bone scan when compared with exam from 02/23/2019. Dictated by: Dictated on workstation # [id number]
== END ==
LOC: CARD 11:45
PROVIDERS: ATTEND Nurse Practitioner Adult Health
DX: Z01.89 Encounter for other specified special examinations (principal); Z51.12 Encounter for antineoplastic immunotherapy; C64.1 Malignant neoplasm of right kidney, except renal pelvis; C79.51 Secondary malignant neoplasm of bone
CPT/HCPCS: 71260; 74178; 78306

== ENCOUNTER 2019-08-01 08:34 | Outpatient (RCR) | payer MEDICARE ==
[2019-05-23 09:41] LABS: BASOPHILS % (AUTO) 0 % (0-10); EOSINOPHILS # (AUTO) 0.3 10^3/uL (0.0-0.3); EOSINOPHILS % (AUTO) 3 % (0-10); HEMATOCRIT 42 % (40-54); HEMOGLOBIN 13.7 G/DL (13.3-17.7); LYMPHOCYTES # (AUTO) 2.1 X 10^3 (1.0-4.0); LYMPHOCYTES % (AUTO) 20 % (12-44); MEAN CORPUSCULAR HEMOGLOBIN 30 PG (25-34); MEAN CORPUSCULAR HGB CONC 33 G/DL (32-36); MEAN CORPUSCULAR VOLUME 91 FL (80-99); MEAN PLATELET VOLUME 9.1 FL (7.4-10.4); MONOCYTES # (AUTO) 0.8 X 10^3 (0.0-1.0); MONOCYTES % (AUTO) 8 % (0-12); NEUTROPHILS # (AUTO) 7.3 X 10^3 (1.8-7.8); NEUTROPHILS % (AUTO) 69 % (42-75); PLATELET COUNT 261 10^3/uL (130-400); RED CELL DISTRIBUTION WIDTH 14.1 % (10.0-14.5); WHITE BLOOD COUNT 10.5 10^3/uL (4.3-11.0)
[2019-05-23 09:58] LABS: ALANINE AMINOTRANSFERASE 36 U/L (0-55); ALKALINE PHOSPHATASE 173 U/L (40-136); BILIRUBIN,TOTAL 0.3 MG/DL (0.1-1.0); BUN/CREATININE RATIO 21; CALCIUM 10.5 MG/DL (8.5-10.1); CARBON DIOXIDE 25 MMOL/L (21-32); CHLORIDE 101 MMOL/L (98-107); CREATININE SERUM 0.89 MG/DL (0.60-1.30); GFR ESTIMATED > 60; GLUCOSE 102 MG/DL (70-105); SODIUM 137 MMOL/L (135-145); TOTAL PROTEIN 7.9 GM/DL (6.4-8.2)
[2019-05-23 09:59] LABS: ALBUMIN 4.6 GM/DL (3.2-4.5)
[2019-06-20 09:01] LABS: BASOPHILS % (AUTO) 0 % (0-10); EOSINOPHILS # (AUTO) 0.4 10^3/uL (0.0-0.3); EOSINOPHILS % (AUTO) 4 % (0-10); HEMATOCRIT 43 % (40-54); HEMOGLOBIN 13.7 G/DL (13.3-17.7); LYMPHOCYTES # (AUTO) 2.5 X 10^3 (1.0-4.0); LYMPHOCYTES % (AUTO) 28 % (12-44); MEAN CORPUSCULAR HEMOGLOBIN 28 PG (25-34); MEAN CORPUSCULAR HGB CONC 32 G/DL (32-36); MEAN CORPUSCULAR VOLUME 89 FL (80-99); MEAN PLATELET VOLUME 9.5 FL (7.4-10.4); MONOCYTES # (AUTO) 0.7 X 10^3 (0.0-1.0); MONOCYTES % (AUTO) 8 % (0-12); NEUTROPHILS # (AUTO) 5.3 X 10^3 (1.8-7.8); NEUTROPHILS % (AUTO) 59 % (42-75); PLATELET COUNT 266 10^3/uL (130-400); RED CELL DISTRIBUTION WIDTH 14.9 % (10.0-14.5); WHITE BLOOD COUNT 8.8 10^3/uL (4.3-11.0)
[2019-06-20 09:26] LABS: ALANINE AMINOTRANSFERASE 29 U/L (0-55); ALBUMIN 4.6 GM/DL (3.2-4.5); ALKALINE PHOSPHATASE 129 U/L (40-136); BILIRUBIN,TOTAL 0.5 MG/DL (0.1-1.0); BUN/CREATININE RATIO 19; CARBON DIOXIDE 21 MMOL/L (21-32); CHLORIDE 104 MMOL/L (98-107); CREATININE SERUM 0.86 MG/DL (0.60-1.30); GFR ESTIMATED > 60; GLUCOSE 93 MG/DL (70-105); POTASSIUM 4.1 MMOL/L (3.6-5.0); SODIUM 139 MMOL/L (135-145); TOTAL PROTEIN 7.6 GM/DL (6.4-8.2)
[2019-07-18 09:20] LABS: BASOPHILS % (AUTO) 0 % (0-10); EOSINOPHILS # (AUTO) 0.4 10^3/uL (0.0-0.3); EOSINOPHILS % (AUTO) 5 % (0-10); HEMATOCRIT 42 % (40-54); HEMOGLOBIN 13.3 G/DL (13.3-17.7); LYMPHOCYTES # (AUTO) 2.3 X 10^3 (1.0-4.0); LYMPHOCYTES % (AUTO) 26 % (12-44); MEAN CORPUSCULAR HEMOGLOBIN 29 PG (25-34); MEAN CORPUSCULAR HGB CONC 32 G/DL (32-36); MEAN CORPUSCULAR VOLUME 90 FL (80-99); MEAN PLATELET VOLUME 9.2 FL (7.4-10.4); MONOCYTES # (AUTO) 0.7 X 10^3 (0.0-1.0); MONOCYTES % (AUTO) 8 % (0-12); NEUTROPHILS # (AUTO) 5.4 X 10^3 (1.8-7.8); NEUTROPHILS % (AUTO) 61 % (42-75); PLATELET COUNT 234 10^3/uL (130-400); RED CELL DISTRIBUTION WIDTH 14.9 % (10.0-14.5); WHITE BLOOD COUNT 8.8 10^3/uL (4.3-11.0)
[2019-07-18 09:41] LABS: ALANINE AMINOTRANSFERASE 34 U/L (0-55); ALBUMIN 4.5 GM/DL (3.2-4.5); ALKALINE PHOSPHATASE 149 U/L (40-136); BILIRUBIN,TOTAL 0.4 MG/DL (0.1-1.0); BUN/CREATININE RATIO 16; CALCIUM 9.7 MG/DL (8.5-10.1); CARBON DIOXIDE 25 MMOL/L (21-32); CHLORIDE 104 MMOL/L (98-107); CREATININE SERUM 0.76 MG/DL (0.60-1.30); GFR ESTIMATED > 60; GLUCOSE 99 MG/DL (70-105); POTASSIUM 4.3 MMOL/L (3.6-5.0); SODIUM 139 MMOL/L (135-145); TOTAL PROTEIN 7.5 GM/DL (6.4-8.2)
[~2019-08-01 08:34] MED LIST changes: -BARIUM SUSPENSION 2.1% (VANILLA SILQ) 450 ML PO ONE; -CATHETER FLUSH 10 ML SYR IV PRN; -HOLD METFORMIN - RECEIVED CONTRAST 20 ML VIAL IV SCH; -IOHEXOL 350 MG/ML 100 ML (OMNIPAQUE 350) VIAL IV ONE; +METHYLPREDNISOLONE 40 MG/ML IV SCH; +NIVOLUMAB 240 MG in NS (IVPB) CANCER CENTER 100 ML IV SCH; +NS (IVPB) CANCER CENTER 250 ML IV SCH; -NS 100 ML (IVPB) BAG IV ONE; +diphenhydrAMINE 25 MG TAB (BENADRYL) CANCER CENTER PO SCH; +methylPREDNISolone 125 MG/2 ML (SOLU-MEDROL) CANCER CTR IV SCH; +methylPREDNISolone 125 MG/2 ML (SOLU-MEDROL) CANCER CTR ONE
== END 2019-08-07 | disposition home or self-care (01) ==
LOC: ONC 08:34
PROVIDERS: ATTEND Internal Medicine Hematology & Oncology
DX: Z51.11 Encounter for antineoplastic chemotherapy (principal); C64.1 Malignant neoplasm of right kidney, except renal pelvis; C79.51 Secondary malignant neoplasm of bone; I82.401 Acute embolism and thrombosis of unspecified deep veins of right lower extremity; E03.9 Hypothyroidism, unspecified; Z79.899 Other long term (current) drug therapy
CPT/HCPCS: 36415; 80053; 83615; 84443; 85025; 96375; 96413

== ENCOUNTER → 2019-09-07 | Outpatient (CLI) | payer MEDICARE ==
[~2019-09-07] MED LIST changes: +BARIUM SUSPENSION 2.1% (VANILLA SILQ) 450 ML PO ONE; +CATHETER FLUSH 10 ML SYR IV PRN; +HOLD METFORMIN - RECEIVED CONTRAST 20 ML VIAL IV SCH; +IOHEXOL 350 MG/ML 100 ML (OMNIPAQUE 350) VIAL IV ONE; -METHYLPREDNISOLONE 40 MG/ML IV SCH; -NIVOLUMAB 240 MG in NS (IVPB) CANCER CENTER 100 ML IV SCH; -NS (IVPB) CANCER CENTER 250 ML IV SCH; +NS 100 ML (IVPB) BAG IV ONE; -diphenhydrAMINE 25 MG TAB (BENADRYL) CANCER CENTER PO SCH; -methylPREDNISolone 125 MG/2 ML (SOLU-MEDROL) CANCER CTR IV SCH; -methylPREDNISolone 125 MG/2 ML (SOLU-MEDROL) CANCER CTR ONE
--- NOTE | 2019-09-07 13:29 | Diagnostic Imaging Report ---
PROCEDURE: CT chest with contrast, CT abdomen and pelvis with and without contrast. TECHNIQUE: Pre and post intravenous contrast axial imaging of the abdomen and pelvis and post contrast axial imaging of the chest were performed. Auto Exposure Controls were utilized during the CT exam to meet ALARA standards for radiation dose reduction. INDICATION: Metastatic disease. COMPARISON: Exam compared with study 06/15/2019. FINDINGS: Chest: Destructive lesion with its epicenter at the posterolateral margins of the right seventh and eighth ribs is redemonstrated. There is a large extraosseous soft tissue component extending superficial and deep to the destroyed bone with maximal transverse thickness of the tumor measuring 5.4 cm today, previously 4.4 cm. No suspicious pulmonary parenchymal nodule. No thoracic lymphadenopathy. No other chest wall abnormality. Vascular structures patent. No thoracic effusion. Abdomen and pelvis: Infiltrative mass in the right kidney extends into its hilus and there is likely tumor thrombus involving at least portions of the right renal vein. The suprahepatic, the intrahepatic, and the infrahepatic IVC is patent without evidence for bland or tumor thrombus. Renal mass itself is not appreciably changed. The contralateral left kidney is unremarkable and unobstructed. The liver, spleen, and adrenals are negative. There is no abdominopelvic, mesenteric, or retroperitoneal lymphadenopathy. Lytic lesion involving the right hemipelvis extends from the ischium through the acetabulum and into the supra-acetabular innominate bone as well as extensively involves the right sacral ala probably showing soft tissue infiltration at the level of the right second and third sacral foramen. Pelvic bony metastatic disease is not appreciably changed. IMPRESSION: Chest: Progressive chest wall metastasis. No new focal chest lesion, however, found. Abdomen and pelvis: 1. Right renal mass presumed renal cell carcinoma with likely tumor thrombus into the right renal vein but patency of the cava. Negative adrenals and liver. 2. Bony metastatic disease to the right hemipelvis shows no substantial change. Dictated by: Dictated on workstation # [id number]
--- NOTE | 2019-09-07 18:18 | Diagnostic Imaging Report ---
INDICATION: Metastatic disease. TECHNIQUE: Patient received 26.2 mCi technetium 99m MDP and whole-body planar imaging was then performed 3 hours following injection. COMPARISON: Study dated 06/15/2019. FINDINGS: Abnormal uptake about the right chest corresponds to destructive bony lesion and chest wall soft tissue mass present on earlier CT. Sonographically it showed no obvious progression. Extensive abnormal uptakes involve the right hemipelvis also correlating with bony metastatic disease on CT and not appreciably changed sonographically. No new lesion is evident. No calvarial abnormality. There is thoracolumbar and cervical spondylosis and facet arthrosis. IMPRESSION: Metastatic deposits to the right chest wall and right hemipelvis, unchanged from prior exam and correlate with abnormality seen on earlier performed CT. Dictated by: Dictated on workstation # [id number]
== END ==
LOC: CARD 10:34
PROVIDERS: ATTEND Internal Medicine Hematology & Oncology
DX: C64.1 Malignant neoplasm of right kidney, except renal pelvis (principal); C79.51 Secondary malignant neoplasm of bone; C79.89 Secondary malignant neoplasm of other specified sites
CPT/HCPCS: 71260; 74178; 78306

== ENCOUNTER 2019-10-31 08:32 | Outpatient (RCR) | payer MEDICARE ==
[2019-08-15 09:30] LABS: BASOPHILS % (AUTO) 0 % (0-10); EOSINOPHILS # (AUTO) 0.4 10^3/uL (0.0-0.3); EOSINOPHILS % (AUTO) 3 % (0-10); HEMATOCRIT 42 % (40-54); HEMOGLOBIN 13.1 G/DL (13.3-17.7); LYMPHOCYTES # (AUTO) 2.1 X 10^3 (1.0-4.0); LYMPHOCYTES % (AUTO) 20 % (12-44); MEAN CORPUSCULAR HEMOGLOBIN 29 PG (25-34); MEAN CORPUSCULAR HGB CONC 32 G/DL (32-36); MEAN CORPUSCULAR VOLUME 91 FL (80-99); MEAN PLATELET VOLUME 9.1 FL (7.4-10.4); MONOCYTES # (AUTO) 0.8 X 10^3 (0.0-1.0); MONOCYTES % (AUTO) 8 % (0-12); NEUTROPHILS # (AUTO) 7.2 X 10^3 (1.8-7.8); NEUTROPHILS % (AUTO) 69 % (42-75); PLATELET COUNT 275 10^3/uL (130-400); WHITE BLOOD COUNT 10.4 10^3/uL (4.3-11.0)
[2019-08-15 09:53] LABS: ALANINE AMINOTRANSFERASE 25 U/L (0-55); ALBUMIN 4.3 GM/DL (3.2-4.5); ALKALINE PHOSPHATASE 146 U/L (40-136); BILIRUBIN,TOTAL 0.3 MG/DL (0.1-1.0); BUN/CREATININE RATIO 26; CALCIUM 10.2 MG/DL (8.5-10.1); CARBON DIOXIDE 24 MMOL/L (21-32); CHLORIDE 105 MMOL/L (98-107); CREATININE SERUM 0.78 MG/DL (0.60-1.30); GFR ESTIMATED > 60; GLUCOSE 119 MG/DL (70-105); POTASSIUM 4.2 MMOL/L (3.6-5.0); SODIUM 140 MMOL/L (135-145); TOTAL PROTEIN 7.3 GM/DL (6.4-8.2)
[2019-09-13 10:10] LABS: BASOPHILS % (AUTO) 0 % (0-10); EOSINOPHILS # (AUTO) 0.3 10^3/uL (0.0-0.3); EOSINOPHILS % (AUTO) 3 % (0-10); HEMATOCRIT 42 % (40-54); HEMOGLOBIN 13.6 G/DL (13.3-17.7); LYMPHOCYTES # (AUTO) 2.1 X 10^3 (1.0-4.0); LYMPHOCYTES % (AUTO) 23 % (12-44); MEAN CORPUSCULAR HEMOGLOBIN 29 PG (25-34); MEAN CORPUSCULAR HGB CONC 32 G/DL (32-36); MEAN CORPUSCULAR VOLUME 90 FL (80-99); MEAN PLATELET VOLUME 9.3 FL (7.4-10.4); MONOCYTES # (AUTO) 0.6 X 10^3 (0.0-1.0); MONOCYTES % (AUTO) 7 % (0-12); NEUTROPHILS # (AUTO) 5.9 X 10^3 (1.8-7.8); NEUTROPHILS % (AUTO) 66 % (42-75); PLATELET COUNT 279 10^3/uL (130-400); WHITE BLOOD COUNT 8.9 10^3/uL (4.3-11.0)
[2019-09-13 10:31] LABS: ALANINE AMINOTRANSFERASE 23 U/L (0-55); ALBUMIN 4.6 GM/DL (3.2-4.5); ALKALINE PHOSPHATASE 115 U/L (40-136); BILIRUBIN,TOTAL 0.5 MG/DL (0.1-1.0); BUN/CREATININE RATIO 15; CALCIUM 9.9 MG/DL (8.5-10.1); CARBON DIOXIDE 22 MMOL/L (21-32); CHLORIDE 103 MMOL/L (98-107); CREATININE SERUM 0.84 MG/DL (0.60-1.30); GFR ESTIMATED > 60; GLUCOSE 95 MG/DL (70-105); SODIUM 138 MMOL/L (135-145); TOTAL PROTEIN 7.9 GM/DL (6.4-8.2)
[2019-10-10 09:28] LABS: BASOPHILS % (AUTO) 0 % (0-10); EOSINOPHILS # (AUTO) 0.3 10^3/uL (0.0-0.3); EOSINOPHILS % (AUTO) 4 % (0-10); HEMATOCRIT 43 % (40-54); HEMOGLOBIN 13.8 G/DL (13.3-17.7); LYMPHOCYTES # (AUTO) 1.3 X 10^3 (1.0-4.0); LYMPHOCYTES % (AUTO) 21 % (12-44); MEAN CORPUSCULAR HEMOGLOBIN 28 PG (25-34); MEAN CORPUSCULAR HGB CONC 32 G/DL (32-36); MEAN CORPUSCULAR VOLUME 88 FL (80-99); MEAN PLATELET VOLUME 9.5 FL (7.4-10.4); MONOCYTES # (AUTO) 0.8 X 10^3 (0.0-1.0); MONOCYTES % (AUTO) 12 % (0-12); NEUTROPHILS % (AUTO) 63 % (42-75); PLATELET COUNT 243 10^3/uL (130-400); RED CELL DISTRIBUTION WIDTH 14.8 % (10.0-14.5); WHITE BLOOD COUNT 6.3 10^3/uL (4.3-11.0)
[2019-10-10 09:50] LABS: ALANINE AMINOTRANSFERASE 25 U/L (0-55); ALBUMIN 4.5 GM/DL (3.2-4.5); ALKALINE PHOSPHATASE 122 U/L (40-136); BILIRUBIN,TOTAL 0.4 MG/DL (0.1-1.0); BUN/CREATININE RATIO 20; CARBON DIOXIDE 22 MMOL/L (21-32); CHLORIDE 104 MMOL/L (98-107); CREATININE SERUM 0.79 MG/DL (0.60-1.30); GFR ESTIMATED > 60; GLUCOSE 121 MG/DL (70-105); POTASSIUM 4.3 MMOL/L (3.6-5.0); SODIUM 139 MMOL/L (135-145); TOTAL PROTEIN 8.1 GM/DL (6.4-8.2)
[~2019-10-31 08:32] MED LIST changes: -BARIUM SUSPENSION 2.1% (VANILLA SILQ) 450 ML PO ONE; -CATHETER FLUSH 10 ML SYR IV PRN; -HOLD METFORMIN - RECEIVED CONTRAST 20 ML VIAL IV SCH; -IOHEXOL 350 MG/ML 100 ML (OMNIPAQUE 350) VIAL IV ONE; +NIVOLUMAB 240 MG in NS (IVPB) CANCER CENTER 100 ML IV SCH; +NS (IVPB) CANCER CENTER 250 ML IV SCH; -NS 100 ML (IVPB) BAG IV ONE; +diphenhydrAMINE 25 MG TAB (BENADRYL) CANCER CENTER PO SCH; +methylPREDNISolone 125 MG/2 ML (SOLU-MEDROL) CANCER CTR IV SCH
== END 2019-11-13 | disposition home or self-care (01) ==
LOC: ONC 08:32
PROVIDERS: ATTEND Internal Medicine Hematology & Oncology
DX: Z51.11 Encounter for antineoplastic chemotherapy (principal); C64.1 Malignant neoplasm of right kidney, except renal pelvis; C79.51 Secondary malignant neoplasm of bone; I82.401 Acute embolism and thrombosis of unspecified deep veins of right lower extremity; E03.9 Hypothyroidism, unspecified; Z79.899 Other long term (current) drug therapy
CPT/HCPCS: 80053; 83615; 84443; 85025; 96375; 96413; G0463; 36415

== ENCOUNTER 2020-02-06 08:26 | Outpatient (RCR) | payer MEDICARE ==
[2019-11-14 08:31] LABS: BASOPHILS % (AUTO) 0 % (0-10); EOSINOPHILS # (AUTO) 0.2 10^3/uL (0.0-0.3); EOSINOPHILS % (AUTO) 3 % (0-10); HEMATOCRIT 40 % (40-54); HEMOGLOBIN 12.9 G/DL (13.3-17.7); LYMPHOCYTES # (AUTO) 1.6 X 10^3 (1.0-4.0); LYMPHOCYTES % (AUTO) 18 % (12-44); MEAN CORPUSCULAR HEMOGLOBIN 29 PG (25-34); MEAN CORPUSCULAR HGB CONC 33 G/DL (32-36); MEAN CORPUSCULAR VOLUME 88 FL (80-99); MEAN PLATELET VOLUME 9.1 FL (7.4-10.4); MONOCYTES # (AUTO) 0.7 X 10^3 (0.0-1.0); MONOCYTES % (AUTO) 8 % (0-12); NEUTROPHILS # (AUTO) 6.4 X 10^3 (1.8-7.8); NEUTROPHILS % (AUTO) 72 % (42-75); PLATELET COUNT 279 10^3/uL (130-400); WHITE BLOOD COUNT 8.9 10^3/uL (4.3-11.0)
[2019-11-14 08:47] LABS: ALBUMIN 4.3 GM/DL (3.2-4.5); CHLORIDE 103 MMOL/L (98-107); POTASSIUM 4.2 MMOL/L (3.6-5.0); SODIUM 136 MMOL/L (135-145)
[2019-11-14 08:49] LABS: CALCIUM 9.7 MG/DL (8.5-10.1)
[2019-11-14 08:50] LABS: GLUCOSE 114 MG/DL (70-105); TOTAL PROTEIN 7.7 GM/DL (6.4-8.2)
[2019-11-14 08:51] LABS: CARBON DIOXIDE 24 MMOL/L (21-32)
[2019-11-14 08:52] LABS: BILIRUBIN,TOTAL 0.6 MG/DL (0.1-1.0)
[2019-11-14 08:53] LABS: ALKALINE PHOSPHATASE 133 U/L (40-136); CREATININE SERUM 0.82 MG/DL (0.60-1.30); GFR ESTIMATED > 60
[2019-11-14 08:54] LABS: BUN/CREATININE RATIO 21
[2019-11-14 08:56] LABS: ALANINE AMINOTRANSFERASE 20 U/L (0-55)
[2019-12-12 08:52] LABS: BASOPHILS % (AUTO) 0 % (0-10); EOSINOPHILS # (AUTO) 0.3 10^3/uL (0.0-0.3); EOSINOPHILS % (AUTO) 3 % (0-10); HEMATOCRIT 38 % (40-54); HEMOGLOBIN 12.4 G/DL (13.3-17.7); LYMPHOCYTES # (AUTO) 1.5 X 10^3 (1.0-4.0); LYMPHOCYTES % (AUTO) 16 % (12-44); MEAN CORPUSCULAR HEMOGLOBIN 28 PG (25-34); MEAN CORPUSCULAR HGB CONC 32 G/DL (32-36); MEAN CORPUSCULAR VOLUME 87 FL (80-99); MEAN PLATELET VOLUME 9.1 FL (7.4-10.4); MONOCYTES # (AUTO) 0.9 X 10^3 (0.0-1.0); MONOCYTES % (AUTO) 10 % (0-12); NEUTROPHILS # (AUTO) 6.7 X 10^3 (1.8-7.8); NEUTROPHILS % (AUTO) 72 % (42-75); PLATELET COUNT 293 10^3/uL (130-400); WHITE BLOOD COUNT 9.3 10^3/uL (4.3-11.0)
[2019-12-12 09:10] LABS: ALANINE AMINOTRANSFERASE 20 U/L (0-55); ALBUMIN 4.1 GM/DL (3.2-4.5); ALKALINE PHOSPHATASE 142 U/L (40-136); BILIRUBIN,TOTAL 0.4 MG/DL (0.1-1.0); BUN/CREATININE RATIO 20; CARBON DIOXIDE 23 MMOL/L (21-32); CHLORIDE 103 MMOL/L (98-107); CREATININE SERUM 0.76 MG/DL (0.60-1.30); GFR ESTIMATED > 60; GLUCOSE 112 MG/DL (70-105); POTASSIUM 4.6 MMOL/L (3.6-5.0); SODIUM 137 MMOL/L (135-145); TOTAL PROTEIN 7.6 GM/DL (6.4-8.2)
[2020-01-09 09:20] LABS: BASOPHILS % (AUTO) 0 % (0-10); EOSINOPHILS # (AUTO) 0.4 10^3/uL (0.0-0.3); EOSINOPHILS % (AUTO) 4 % (0-10); HEMATOCRIT 38 % (40-54); LYMPHOCYTES # (AUTO) 1.7 10^3/uL (1.0-4.0); LYMPHOCYTES % (AUTO) 19 % (12-44); MEAN CORPUSCULAR HEMOGLOBIN 28 pg (25-34); MEAN CORPUSCULAR HGB CONC 31 g/dL (32-36); MEAN CORPUSCULAR VOLUME 88 fL (80-99); MEAN PLATELET VOLUME 9.3 fL (9.0-12.2); MONOCYTES # (AUTO) 0.7 10^3/uL (0.0-1.0); MONOCYTES % (AUTO) 8 % (0-12); NEUTROPHILS # (AUTO) 6.3 10^3/uL (1.8-7.8); NEUTROPHILS % (AUTO) 69 % (42-75); PLATELET COUNT 285 10^3/uL (130-400); WHITE BLOOD COUNT 9.1 10^3/uL (4.3-11.0)
[2020-01-09 09:41] LABS: ALANINE AMINOTRANSFERASE 24 U/L (0-55); ALBUMIN 4.2 GM/DL (3.2-4.5); ALKALINE PHOSPHATASE 146 U/L (40-136); BILIRUBIN,TOTAL 0.4 MG/DL (0.1-1.0); BUN/CREATININE RATIO 21; CALCIUM 10.1 MG/DL (8.5-10.1); CARBON DIOXIDE 22 MMOL/L (21-32); CHLORIDE 103 MMOL/L (98-107); CREATININE SERUM 0.76 MG/DL (0.60-1.30); GFR ESTIMATED > 60; GLUCOSE 101 MG/DL (70-105); POTASSIUM 4.6 MMOL/L (3.6-5.0); SODIUM 139 MMOL/L (135-145); TOTAL PROTEIN 7.5 GM/DL (6.4-8.2)
[2020-02-06 09:21] LABS: BASOPHILS % (AUTO) 0 % (0-10); EOSINOPHILS # (AUTO) 0.3 10^3/uL (0.0-0.3); EOSINOPHILS % (AUTO) 4 % (0-10); HEMATOCRIT 41 % (40-54); HEMOGLOBIN 12.9 g/dL (13.3-17.7); LYMPHOCYTES # (AUTO) 1.3 10^3/uL (1.0-4.0); LYMPHOCYTES % (AUTO) 18 % (12-44); MEAN CORPUSCULAR HEMOGLOBIN 27 pg (25-34); MEAN CORPUSCULAR HGB CONC 31 g/dL (32-36); MEAN CORPUSCULAR VOLUME 87 fL (80-99); MEAN PLATELET VOLUME 9.3 fL (9.0-12.2); MONOCYTES # (AUTO) 0.6 10^3/uL (0.0-1.0); MONOCYTES % (AUTO) 8 % (0-12); NEUTROPHILS % (AUTO) 70 % (42-75); PLATELET COUNT 240 10^3/uL (130-400); WHITE BLOOD COUNT 7.2 10^3/uL (4.3-11.0)
[2020-02-06 09:38] LABS: BUN/CREATININE RATIO 15; CARBON DIOXIDE 25 MMOL/L (21-32); CHLORIDE 104 MMOL/L (98-107); CREATININE SERUM 0.84 MG/DL (0.60-1.30); POTASSIUM 4.4 MMOL/L (3.6-5.0); SODIUM 140 MMOL/L (135-145)
[2020-02-06 09:39] LABS: ALANINE AMINOTRANSFERASE 21 U/L (0-55); ALBUMIN 4.2 GM/DL (3.2-4.5); ALKALINE PHOSPHATASE 142 U/L (40-136); BILIRUBIN,TOTAL 0.3 MG/DL (0.1-1.0); CALCIUM 9.9 MG/DL (8.5-10.1); GFR ESTIMATED > 60; GLUCOSE 108 MG/DL (70-105); TOTAL PROTEIN 7.4 GM/DL (6.4-8.2)
== END 2020-02-12 | disposition home or self-care (01) ==
LOC: ONC 08:26
PROVIDERS: ATTEND Internal Medicine Hematology & Oncology
DX: Z51.11 Encounter for antineoplastic chemotherapy (principal); C64.1 Malignant neoplasm of right kidney, except renal pelvis; C79.51 Secondary malignant neoplasm of bone; I82.401 Acute embolism and thrombosis of unspecified deep veins of right lower extremity; E03.9 Hypothyroidism, unspecified; L98.8 Other specified disorders of the skin and subcutaneous tissue; Z79.899 Other long term (current) drug therapy; Z92.3 Personal history of irradiation
CPT/HCPCS: 80053; 83615; 85025; 96375; 96413; G0463; 36415; 84443

== ENCOUNTER → 2020-02-13 | Outpatient (CLI) | payer MEDICARE ==
[~2020-02-13] MED LIST changes: +CATHETER FLUSH 10 ML SYR IV PRN; +HOLD METFORMIN - RECEIVED CONTRAST 20 ML VIAL IV SCH; +IOHEXOL 350 MG/ML 100 ML (OMNIPAQUE 350) VIAL IV ONE; -NIVOLUMAB 240 MG in NS (IVPB) CANCER CENTER 100 ML IV SCH; -NS (IVPB) CANCER CENTER 250 ML IV SCH; +NS 100 ML (IVPB) BAG IV ONE; -diphenhydrAMINE 25 MG TAB (BENADRYL) CANCER CENTER PO SCH; -methylPREDNISolone 125 MG/2 ML (SOLU-MEDROL) CANCER CTR IV SCH
--- NOTE | 2020-02-13 12:40 | Diagnostic Imaging Report ---
EXAMINATION: CT Chest with intravenous contrast, CT Abdomen and Pelvis without and with intravenous contrast. TECHNIQUE: Pre and post intravenous contrast axial imaging of the abdomen and pelvis and post contrast axial imaging of the chest were performed. All CT scans use one or more of the following dose optimizing techniques: automated exposure control, MA and/or KvP adjustment based on a patient size and exam type, or iterative reconstruction. 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 COMPARISON: 12/07/2019 FINDINGS: There is no edema or pneumonia. No pleural effusion. No pneumothorax. No suspicious nodules. There is no axillary or supraclavicular lymphadenopathy. There is no mediastinal lymphadenopathy. Heart size is normal. There are severe coronary artery calcifications. No pericardial effusion. Aorta is normal in caliber. The liver is normal without focal lesion. There is no biliary ductal dilation. Gallbladder is normal. Pancreas is normal. Spleen is normal. Adrenal glands are normal. A 4.4 x 4.3 cm right renal mass is unchanged in size previously measuring 4.4 x 4.2 cm. Tumor extends into the renal pelvis and into the right renal vein, unchanged from prior exam. It does not extend into the inferior vena cava. There is no hydronephrosis. Urinary bladder is normal. Visualized bowel is normal in caliber without obstruction or inflammation. No free fluid or air. No abdominal or pelvic lymphadenopathy. Aorta is normal in caliber without aneurysm. There is a large obstructive mass in the right hemipelvis. A soft tissue component in the right sacrum extending to the sacroiliac joint measures 4.7 x 3.3 cm, previously 4.3 x 3.1 cm. A mass at the right ischial tuberosity measures 3.1 x 3.2 cm, previously 3.1 x 3.2 cm. Large mass centered in the right seventh and eighth ribs is again seen. The maximal width of the soft tissue component is 4.0 cm, previously 4.1 cm. Lytic lesion is present in L4 and T9. No new osseous lesions are seen. IMPRESSION: 1. 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 2. Stable right renal mass. Dictated by: Dictated on workstation # [id number]
--- NOTE | 2020-02-13 14:35 | Diagnostic Imaging Report ---
INDICATION: Clear cell carcinoma of the kidney. TECHNIQUE: The patient was administered 26.1 mCi of technetium 99m MDP intravenously and whole-body imaging was performed after a 3 hour delay. COMPARISON: Correlation is made with the prior whole body bone scan from 12/07/2019. FINDINGS: Normal uptake of activity by the axial and appendicular skeleton is noted. There is uptake by the kidneys with excretion into the urinary bladder. The previously noted uptake involving right-sided ribs, approximately the right 6th through 8th ribs, appears similar to the prior exam. There is uptake in the region of the sacrum and right hemipelvis, similar to the prior exam. No new foci of tracer accumulation is seen. IMPRESSION: Stable whole body bone scan when compared with the exam from 12/07/2019. Dictated by: Dictated on workstation # [id number]
== END ==
LOC: CARD 11:00
PROVIDERS: ATTEND Internal Medicine Hematology & Oncology
DX: C64.1 Malignant neoplasm of right kidney, except renal pelvis (principal); C79.51 Secondary malignant neoplasm of bone
CPT/HCPCS: 71260; 74178; 78306; A9503

== ENCOUNTER 2020-03-19 09:28 | Outpatient (RCR) | payer MEDICARE ==
[2020-02-20 10:02] LABS: BASOPHILS % (AUTO) 0 % (0-10); EOSINOPHILS # (AUTO) 0.4 10^3/uL (0.0-0.3); EOSINOPHILS % (AUTO) 5 % (0-10); HEMATOCRIT 42 % (40-54); HEMOGLOBIN 13.2 g/dL (13.3-17.7); LYMPHOCYTES # (AUTO) 1.6 10^3/uL (1.0-4.0); LYMPHOCYTES % (AUTO) 21 % (12-44); MEAN CORPUSCULAR HEMOGLOBIN 28 pg (25-34); MEAN CORPUSCULAR HGB CONC 31 g/dL (32-36); MEAN CORPUSCULAR VOLUME 89 fL (80-99); MEAN PLATELET VOLUME 9.1 fL (9.0-12.2); MONOCYTES # (AUTO) 0.5 10^3/uL (0.0-1.0); MONOCYTES % (AUTO) 6 % (0-12); NEUTROPHILS # (AUTO) 5.2 10^3/uL (1.8-7.8); NEUTROPHILS % (AUTO) 68 % (42-75); PLATELET COUNT 279 10^3/uL (130-400); WHITE BLOOD COUNT 7.6 10^3/uL (4.3-11.0)
[2020-02-20 10:24] LABS: ALANINE AMINOTRANSFERASE 24 U/L (0-55); ALBUMIN 4.5 GM/DL (3.2-4.5); ALKALINE PHOSPHATASE 150 U/L (40-136); BILIRUBIN,TOTAL 0.5 MG/DL (0.1-1.0); BUN/CREATININE RATIO 13; CALCIUM 9.9 MG/DL (8.5-10.1); CARBON DIOXIDE 24 MMOL/L (21-32); CHLORIDE 102 MMOL/L (98-107); CREATININE SERUM 0.83 MG/DL (0.60-1.30); GFR ESTIMATED > 60; GLUCOSE 98 MG/DL (70-105); POTASSIUM 4.2 MMOL/L (3.6-5.0); SODIUM 139 MMOL/L (135-145); TOTAL PROTEIN 7.9 GM/DL (6.4-8.2)
[~2020-03-19 09:28] MED LIST changes: -CATHETER FLUSH 10 ML SYR IV PRN; -HOLD METFORMIN - RECEIVED CONTRAST 20 ML VIAL IV SCH; -IOHEXOL 350 MG/ML 100 ML (OMNIPAQUE 350) VIAL IV ONE; +NIVOLUMAB 240 MG in NS (IVPB) CANCER CENTER 100 ML IV SCH; +NIVOLUMAB 480 MG in NS (IVPB) CANCER CENTER 100 ML IV SCH; +NS (IVPB) CANCER CENTER 250 ML IV SCH; -NS 100 ML (IVPB) BAG IV ONE; +diphenhydrAMINE 25 MG TAB (BENADRYL) CANCER CENTER PO SCH; +methylPREDNISolone 125 MG/2 ML (SOLU-MEDROL) CANCER CTR IV SCH
[2020-03-19 09:56] LABS: BASOPHILS % (AUTO) 0 % (0-10); EOSINOPHILS # (AUTO) 0.5 10^3/uL (0.0-0.3); EOSINOPHILS % (AUTO) 7 % (0-10); HEMATOCRIT 45 % (40-54); HEMOGLOBIN 13.8 g/dL (13.3-17.7); LYMPHOCYTES # (AUTO) 2.7 10^3/uL (1.0-4.0); LYMPHOCYTES % (AUTO) 36 % (12-44); MEAN CORPUSCULAR HEMOGLOBIN 27 pg (25-34); MEAN CORPUSCULAR HGB CONC 31 g/dL (32-36); MEAN CORPUSCULAR VOLUME 89 fL (80-99); MEAN PLATELET VOLUME 9.4 fL (9.0-12.2); MONOCYTES # (AUTO) 0.6 10^3/uL (0.0-1.0); MONOCYTES % (AUTO) 8 % (0-12); NEUTROPHILS # (AUTO) 3.6 10^3/uL (1.8-7.8); NEUTROPHILS % (AUTO) 48 % (42-75); PLATELET COUNT 250 10^3/uL (130-400); WHITE BLOOD COUNT 7.5 10^3/uL (4.3-11.0)
[2020-03-19 10:11] LABS: ALANINE AMINOTRANSFERASE 17 U/L (0-55); ALBUMIN 4.4 GM/DL (3.2-4.5); ALKALINE PHOSPHATASE 136 U/L (40-136); BILIRUBIN,TOTAL 0.4 MG/DL (0.1-1.0); BUN/CREATININE RATIO 20; CALCIUM 10.2 MG/DL (8.5-10.1); CARBON DIOXIDE 23 MMOL/L (21-32); CHLORIDE 103 MMOL/L (98-107); CREATININE SERUM 0.83 MG/DL (0.60-1.30); GFR ESTIMATED > 60; GLUCOSE 93 MG/DL (70-105); POTASSIUM 4.4 MMOL/L (3.6-5.0); SODIUM 140 MMOL/L (135-145); TOTAL PROTEIN 8.2 GM/DL (6.4-8.2)
== END 2020-04-10 08:57 | disposition home or self-care (01) ==
LOC: ONC 09:28
PROVIDERS: ATTEND Internal Medicine Hematology & Oncology
DX: Z51.11 Encounter for antineoplastic chemotherapy (principal); C64.1 Malignant neoplasm of right kidney, except renal pelvis; C79.51 Secondary malignant neoplasm of bone; I82.401 Acute embolism and thrombosis of unspecified deep veins of right lower extremity; E03.9 Hypothyroidism, unspecified; L98.8 Other specified disorders of the skin and subcutaneous tissue; Z79.899 Other long term (current) drug therapy; Z92.3 Personal history of irradiation
CPT/HCPCS: 80053; 83615; 84443; 85025; 96375; 96413; G0463; 36415

== ENCOUNTER 2020-04-16 08:30 | Outpatient (RCR) | payer MEDICARE ==
[~2020-04-16 08:30] MED LIST changes: -NIVOLUMAB 240 MG in NS (IVPB) CANCER CENTER 100 ML IV SCH
[2020-04-16 08:49] LABS: BASOPHILS % (AUTO) 1 % (0-10); EOSINOPHILS # (AUTO) 0.5 10^3/uL (0.0-0.3); EOSINOPHILS % (AUTO) 8 % (0-10); HEMATOCRIT 42 % (40-54); HEMOGLOBIN 13.1 g/dL (13.3-17.7); LYMPHOCYTES # (AUTO) 2.1 10^3/uL (1.0-4.0); LYMPHOCYTES % (AUTO) 33 % (12-44); MEAN CORPUSCULAR HEMOGLOBIN 27 pg (25-34); MEAN CORPUSCULAR HGB CONC 31 g/dL (32-36); MEAN CORPUSCULAR VOLUME 86 fL (80-99); MEAN PLATELET VOLUME 9.2 fL (9.0-12.2); MONOCYTES # (AUTO) 0.6 10^3/uL (0.0-1.0); MONOCYTES % (AUTO) 9 % (0-12); NEUTROPHILS # (AUTO) 3.2 10^3/uL (1.8-7.8); NEUTROPHILS % (AUTO) 50 % (42-75); PLATELET COUNT 308 10^3/uL (130-400); WHITE BLOOD COUNT 6.5 10^3/uL (4.3-11.0)
[2020-04-16 09:06] LABS: ALANINE AMINOTRANSFERASE 15 U/L (0-55); ALKALINE PHOSPHATASE 142 U/L (40-136); BILIRUBIN,TOTAL 0.6 MG/DL (0.1-1.0); BUN/CREATININE RATIO 12; CARBON DIOXIDE 24 MMOL/L (21-32); CHLORIDE 100 MMOL/L (98-107); CREATININE SERUM 0.84 MG/DL (0.60-1.30); GFR ESTIMATED > 60; GLUCOSE 131 MG/DL (70-105); POTASSIUM 3.8 MMOL/L (3.6-5.0); SODIUM 136 MMOL/L (135-145); TOTAL PROTEIN 7.4 GM/DL (6.4-8.2)
== END 2020-07-15 | disposition home or self-care (01) ==
LOC: ONC 08:30
PROVIDERS: ATTEND Internal Medicine Hematology & Oncology
DX: Z51.11 Encounter for antineoplastic chemotherapy (principal); C64.1 Malignant neoplasm of right kidney, except renal pelvis; C79.51 Secondary malignant neoplasm of bone; I82.401 Acute embolism and thrombosis of unspecified deep veins of right lower extremity; E03.9 Hypothyroidism, unspecified; E83.52 Hypercalcemia; D64.9 Anemia, unspecified; L98.8 Other specified disorders of the skin and subcutaneous tissue; Z79.899 Other long term (current) drug therapy; Z92.3 Personal history of irradiation
CPT/HCPCS: 80053; 83615; 84443; 85025; G0463; 36415; 99213